=== PATIENT | male | born 1940 | race Caucasian/White ===

== ENCOUNTER 2016-09-23 11:37 | Emergency (ER) | payer MEDICARE, OTHER ==
[2016-09-23 14:14] LABS: PH,URINE 6.5 (5.0 - 9.0); URINE BILIRUBIN NEGATIVE (NEGATIVE); URINE BLOOD NEGATIVE (NEGATIVE); URINE GLUCOSE (UA) NORMAL (NORMAL); URINE KETONE NEGATIVE (NEGATIVE); URINE LEUKOCYTE ESTERASE TRACE (NEGATIVE); URINE NITRATE NEGATIVE (NEGATIVE); URINE PROTEIN NEGATIVE (NEGATIVE); UROBILINOGEN NORMAL mg/dL (<1.0)
[2016-09-23 14:39] LABS: URINE RBC RARE /[HPF] (0-2); URINE SQUAMOUS EPITHELIAL CELL 0-10 /[HPF] (NONE SEEN); URINE WBC RARE /[HPF] (0-3)
== END 2016-09-23 14:44 | disposition home or self-care (01) ==
LOC: ER 11:37
PROVIDERS: Emergency Medicine
DX: N05.9 Unspecified nephritic syndrome with unspecified morphologic changes (principal); R10.9 Unspecified abdominal pain; E11.9 Type 2 diabetes mellitus without complications; I10 Essential (primary) hypertension; J44.9 Chronic obstructive pulmonary disease, unspecified
CPT/HCPCS: 74150; 81001; 99284; 99284-25